=== PATIENT | female | born 1995 | race American Indian/Alaskan Native ===

== ENCOUNTER 2018-10-29 22:43 | Emergency (ER) | payer OTHER, BC ==
[2018-10-29 22:43] VITALS: BMI 29.2
[2018-10-29 22:57] VITALS: BP 123/82; PULSE 114; RESP 16; TEMP 99; O2SAT 96
[2018-10-29] MEDS ORDERED: Naproxen 550 mg Tab PO STA (23:40)
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
== END 2018-10-30 | disposition home or self-care (01) ==
LOC: ED 22:43
DX: Z04.1 Encounter for examination and observation following transport accident (principal); V43.52XA Car driver injured in collision with other type car in traffic accident, initial encounter; Y92.414 Local residential or business street as the place of occurrence of the external cause